=== PATIENT | female | born 1980 | race Caucasian/White ===

== ENCOUNTER 2021-03-15 18:26 | Emergency (ER) | payer OTHER ==
[~2021-03-15] VITALS: Ht 162.6 cm; Wt 90.7 kg
[~2021-03-15 18:26] MED LIST: AMOXICILLIN875 MG PO; AUGMENTIN 875875 MG PO; CARISOPRODOL 3350 MG PO; FIORINAL 50-321 EACH PO; FLEXERIL PO; FLONASE 0.05%50 MCG NASAL; HYDROCODON-ACE1 EAC7 PO; HYDROCODONE-AP1 EAC6 PO; IBUPROFEN 800800 M1 PO; IBUPROFEN 800800 MG PO; LO-OVRAL-281 EACH PO; MEDROLDOSEPACK PO; MOBIC7.5 M1 PO; NOHOMEMEDICATIONS; NORCO 5-325 TA1 EACH PO; PROPRANOLOL 1010 MG PO; TOPAMAX 100 MG100 MG PO; TOPAMAX200 MG PO; ULTRAM 50MG TAB50 MG PO; ZOFRAN ODT4 MG PO
[2021-03-15 18:35] VITALS: BP 140/86
[2021-03-15] MEDS ORDERED: PROAIR HFA8.5 GM INH (18:46)
[2021-03-15] MEDS ORDERED: AIMOVIG AU140 MG/1 M SUBQ (18:46)
[2021-03-15] MEDS ORDERED: AMOXIL 875 MG875 M1 PO ×2 (18:53→19:46)
[2021-03-15] MEDS ORDERED: LIDOCAINE VISC100 ML SWISH&SPIT ×2 (18:53→19:46)
== END 2021-03-15 19:48 | disposition home or self-care (01) ==
LOC: M.ERS 18:26
DX: K04.7 Periapical abscess without sinus (principal); J45.909 Unspecified asthma, uncomplicated; Z98.890 Other specified postprocedural states; Z98.51 Tubal ligation status; Z79.899 Other long term (current) drug therapy; Z88.5 Allergy status to narcotic agent; Z88.2 Allergy status to sulfonamides